=== PATIENT | male | born 1970 | race American Indian/Alaskan Native ===

== ENCOUNTER 2021-06-24 16:09 | Emergency (ER) | payer BC ==
--- NOTE | 2021-06-25 03:06 | Emergency Department Report ---
ED Medical Clearance HPI - General Chief complaint: Medical Clearance Stated complaint: MEDICAL EVAL/REHAB Time Seen by Provider: 06/25/21 01:40 Source: patient Mode of arrival: Wheelchair - History of Present Illness Initial comments: 50-year-old male with past medical history alcohol dependence/EtOH abuse presents emergency department seeking rehabilitation/detox from alcohol needs clearance before being admitted into [facility]. States that he went to [facility] for admission they referred him to the emergency department to obtain his clearance also has a history of sciatica which is causing pain to his right lower back and down his leg his right leg but no numbness or tingling no loss of strength. Reports no fever, chills, sweats does have some nausea but no vomiting. Reason for Medical Clearance: intoxication Alledged Intoxication: Yes Traumatic Symptoms: denies traumatic injury Associated Symptoms: denies: shortness of breath, palpitations, diaphoresis, fever/chills, headaches, anorexia Allergies/Adverse reactions: Allergies Allergy/AdvReac Type Severity Reaction Status Date / Time No Known Allergies Allergy Unverified 06/24/21 17:33 ED Review of Systems ROS: Stated complaint: MEDICAL EVAL/REHAB Other details as noted in HPI Comment: All other systems reviewed and negative ED Past Medical Hx - Past Medical History Previous Medical History?: Yes Hx Asthma: Yes Additional medical history: alcoholism - Surgical History Past Surgical History?: No ED Physical Exam - General Limitations: No Limitations General appearance: alert, in no apparent distress - Head Head exam: Present: atraumatic, normocephalic - Eye Eye exam: Present: normal appearance - ENT ENT exam: Present: mucous membranes moist - Neck Neck exam: Present: normal inspection - Respiratory Respiratory exam: Present: normal lung sounds bilaterally. Absent: respiratory distress - Cardiovascular Cardiovascular Exam: Present: regular rate, normal rhythm. Absent: systolic murmur, diastolic murmur, rubs, gallop - GI/Abdominal GI/Abdominal exam: Present: soft, normal bowel sounds - Rectal Rectal exam: Present: deferred - Extremities Exam Extremities exam: Present: normal inspection - Back Exam Back exam: Present: normal inspection - Neurological Exam Neurological exam: Present: alert, oriented X3 - Psychiatric Psychiatric exam: Present: normal affect, normal mood - Skin Skin exam: Present: warm, dry, intact, normal color. Absent: rash ED Course Vital Signs 06/24/21 06/25/21 06/25/21 17:35 08:08 08:45 Temperature 97.4 F L Pulse Rate 104 H 125 H 113 H Respiratory 18 18 Rate Blood Pressure Blood Pressure 144/94 148/109 [Right] O2 Sat by Pulse 98 98 100 Oximetry 06/25/21 06/25/21 06/25/21 09:15 09:45 10:15 Temperature Pulse Rate 110 H 132 H 122 H Respiratory 21 18 22 Rate Blood Pressure 157/110 161/101 Blood Pressure [Right] O2 Sat by Pulse 98 98 98 Oximetry 06/25/21 06/25/21 06/25/21 10:31 10:45 11:01 Temperature Pulse Rate 116 H 114 H Respiratory 23 25 H 23 Rate Blood Pressure 161/98 161/98 146/92 Blood Pressure [Right] O2 Sat by Pulse 97 98 97 Oximetry 06/25/21 06/25/21 06/25/21 11:15 11:31 12:01 Temperature Pulse Rate 121 H 113 H Respiratory 19 27 H 25 H Rate Blood Pressure 146/92 162/99 155/106 Blood Pressure [Right] O2 Sat by Pulse 97 98 95 Oximetry 06/25/21 06/25/21 06/25/21 12:31 12:45 13:01 Temperature Pulse Rate Respiratory 20 28 H 20 Rate Blood Pressure 143/87 143/87 138/79 Blood Pressure [Right] O2 Sat by Pulse 97 97 98 Oximetry 06/25/21 06/25/21 06/25/21 13:15 13:31 13:45 Temperature Pulse Rate Respiratory 22 21 20 Rate Blood Pressure 138/79 140/89 140/89 Blood Pressure [Right] O2 Sat by Pulse 97 96 96 Oximetry 06/25/21 06/25/21 06/25/21 14:01 14:15 14:31 Temperature Pulse Rate 108 H Respiratory 21 20 19 Rate Blood Pressure 130/79 130/79 120/75 Blood Pressure [Right] O2 Sat by Pulse 97 96 94 Oximetry 06/25/21 06/25/21 06/25/21 14:45 15:01 15:15 Temperature Pulse Rate 105 H 111 H 112 H Respiratory 22 17 18 Rate Blood Pressure 120/75 120/67 120/67 Blood Pressure [Right] O2 Sat by Pulse 97 97 98 Oximetry 06/25/21 06/25/21 15:31 15:45 Temperature Pulse Rate 120 H 101 H Respiratory 20 22 Rate Blood Pressure 120/75 120/75 Blood Pressure [Right] O2 Sat by Pulse 97 97 Oximetry ED Medical Decision Making - Lab Data Result diagrams: 06/25/21 02:44 06/25/21 02:44 - Medical Decision Making 50-year-old male presents emergency department seeking alcohol detox therapy at [facility] ED Disposition Clinical Impression: Desire for detoxification, H/O ETOH abuse Disposition: DC-01 TO HOME OR SELFCARE Is pt being admited?: No Does the pt Need Aspirin: No Condition: Stable Instructions: Alcohol Use Disorder, Medical Screening Exam Additional Instructions: Medical clearance for EtOH detox Professional and Agency Contacts To help [facility](08/06) [place] Crisis Line: Suicide Prevention Line: Crisis Text Line: Text START to [phone] Emergency: 911 Outpatient COMMUNITY Behavioral Health Resources: [facility]: [facility] [address] [place], [place] [address] [facility] [address] [place] [address] Phone: [phone] [facility] [place] [facility] - [address] [place] [address] Thursday thru Thursday - 8am - 5pm [facility] Address: [address] [place] [address] [facility]: [facility] Address: [address] [place] [address] Thursday thru Thursday- 7am-2pm [facility] Address: [address] [place] [address] Thursday thru Thursday: 8:30AM-5PM In case of an emergency, please contact the following numbers: [place] Crisis and Access Line: Number: Crisis Text Line: (Text START) Number: 969118 Suicide Prevention Line: Number: Emergency Number: 911 SUBSTANCE ABUSE PROGRAMS: [facility]: Location: [place], [place] [facility] Address: [address] [place] [address] [facility]: Address: [address] [place] [address] [facility]: Address: [address] [place] [address] [facility]: Address: [address] [place] [address] [facility] Address: [address] [place] [address]. Please contact above numbers to attempt placement into free based program. Medicaid Programs: [facility]: Address: [address] [place] [address] [facility]: Address: [address] [place] [id number] Referrals: PRIMARY CAREMD [Primary Care Provider] - 3-5 Days
[2021-06-25 03:30] LABS: Basophils # (Auto) 0.2 K/mm3 (0.0-0.1); Basophils % (Auto) 1.5 % (0.0-1.8); Hematocrit 48.9 % (35.5-45.6); Hemoglobin 16.7 gm/dl (11.8-15.2); Lymphocytes # (Auto) 0.6 K/mm3 (1.2-5.4); Lymphocytes % (Auto) 6.3 % (13.4-35.0); Mean Corpuscular HGB Conc 34 % (32-34); Mean Corpuscular Volume 99 fl (84-94); Monocytes # (Auto) 0.7 K/mm3 (0.0-0.8); Monocytes % (Auto) 6.8 % (0.0-7.3); Red Blood Count 4.94 M/mm3 (3.65-5.03); Red Cell Distribution Width 15.8 % (13.2-15.2)
[2021-06-25 03:33] LABS: Platelet Count 348 K/mm3 (140-440)
[2021-06-25 03:40] LABS: BUN/Creatinine Ratio 16; Blood Urea Nitrogen 13 mg/dL (9-20); Calcium 9.8 mg/dL (8.4-10.2); Hemolysis Index 42
[2021-06-25 07:02] LABS: Amphetamine Screen,Urine PRESUMPTIVE NEGATIVE; Benzodiazepines Screen,Urine PRESUMPTIVE NEGATIVE; Cannabinoid Screen,Urine PRESUMPTIVE NEGATIVE; Cocaine Screen,Urine PRESUMPTIVE NEGATIVE; Methadone Screen,Urine PRESUMPTIVE NEGATIVE; Opiate Screen,Urine PRESUMPTIVE NEGATIVE
[2021-06-25 07:32] LABS: Bilirubin,Urine NEG (Negative); Blood,Urine MOD (Negative); Color,Urine Yellow (Yellow); Hyaline Casts,Urine 48 /LPF; Mucus,Urine 1+ /HPF; Urobilinogen,Urine < 2.0 mg/dL (<2.0)
[2021-06-25 07:37] LABS: Protein,Urine >500 mg/dL (Negative)
[2021-06-25] MEDS ORDERED: SODIUM CHLORIDE 0.9% 1000 ML 1,000 ML IV ONE ×3 (08:13→14:09)
[2021-06-25] MEDS ORDERED: LORazepam 2 MG/ML VIAL IV ONE (08:14)
[2021-06-25] MEDS ORDERED: ONDANSETRON 4 MG/2 ML INJ IV ONE (09:49)
[2021-06-25] MEDS ORDERED: PANTOPRAZOLE 40 MG INJ IV ONE (09:50)
--- NOTE | 2021-06-25 10:35 | Consultation ---
History of Present Illness - Reason for Consult Consult date: 06/25/21 Reason for consult: mental health eval - History of Present Psychiatric Illness ED Note: 50-year-old male with past medical history alcohol dependence/EtOH abuse presents emergency department seeking rehabilitation/detox from alcohol needs clearance before being admitted into [facility]. States that he went to [facility] for admission they referred him to the emergency [facility] to obtain his clearance also has a history of sciatica which is causing pain to his right lower back and down his leg his right leg but no numbness or tingling no loss of strength. Reports no fever, chills, sweats does have some nausea but no vomiting. Hans Jernigan is a 50 year old male with a history of alcohol use disorder who presents to the ED with seeking alcohol detox. In my interview with the patient, he reports using alcohol since age 18. The patient reports consuming about a fifth of Vodka daily; he reports longest sobriety period as one month. The patient reports having several inpatient detoxification but has never been to a rehab. The patient presents with moderate tremors, nausea/vomiting and denies any alcohol cravings. The patient denies any current suicidal homicidal ideation and denies hallucinations. Diagnoses: Alcohol use disorder Suicide attempts or Self-harm behavior:Denies Prior psychiatric hospitalizations: Multiple Substance Abuse history:Alcohol Previous psychiatric medications tried:Denies Outpatient treatment: Denies PAST MEDICAL HISTORY: None reported Family Psychiatric History: None reported or documented SOCIAL HISTORY Marital Status: Living Arrangements:Live alone Employment Status: unknown Access to guns/weapons: Denies Education: Bachelors History of Abuse: None reported Legal History: None reported REVIEW OF SYSTEMS Constitutional: Negative for weight loss ENT: Negative for stridor Respiratory: Negative for cough or hemoptysis All other systems reviewed and are negative MENTAL STATUS EXAMINATION General Appearance and Behavior: Age appropriate, good hygiene, wearing appropriate clothes, cooperative, cooperative Cooperation: Participating/engaged Psychomotor Behavior: normal Mood: "ok" Affect and affective range: congruent with stated mood Thought Process: goal directed Thought Content: Not Suicidal Speech: Normal volume, Regular rate and rhythm Suicidal Ideation: Denies Homicidal Ideation: Denies Hallucinations: Denies Delusions: None elicited Impulse Control: impaired Insight and Judgment: limited insight and judgment, Memory: normal Attention: Normal Orientation: Alert, oriented Assessment and Plan (1) Alcohol use Disorder (2) Current Visit: Yes Status: Acute Treatment Plan Sitter: Per primary Medical: Per primary Disposition: Do not recommend acute psychiatric inpatient treatment. The patient understands that if suicidal/homicidal ideas or any endangering thoughts/ behaviors arise, they should seek immediate assistance including but not limited to crisis hotline and emergency room. 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 Will sign off. Thanks Case staffed with Dr. Parekh Medications and Allergies Allergies Allergy/AdvReac Type Severity Reaction Status Date / Time No Known Allergies Allergy Unverified 06/24/21 17:33 Mental Status Exam - Vital signs Last Vital Signs Temp 97.4 F L 06/24/21 17:35 Pulse 125 H 06/25/21 08:08 Resp 18 06/24/21 17:35 BP 148/109 06/25/21 08:08 Pulse Ox 98 06/25/21 08:08 Results Result Diagrams: 06/25/21 02:44 06/25/21 02:44 Abnormal lab results 06/25/21 06/25/21 06/25/21 Range/Units 02:44 02:44 02:44 Hgb 16.7 H (11.8-15.2) gm/dl Hct 48.9 H (35.5-45.6) % MCV 99 H (84-94) fl MCH 34 H (28-32) pg RDW 15.8 H (13.2-15.2) % Lymph % (Auto) 6.3 L (13.4-35.0) % Lymph # (Auto) 0.6 L (1.2-5.4) K/mm3 Baso # (Auto) 0.2 H (0.0-0.1) K/mm3 Seg Neutrophils % 85.4 H (40.0-70.0) % Seg Neutrophils # 8.7 H (1.8-7.7) K/mm3 Sodium 133 L (137-145) mmol/L Chloride 83.5 L (98-107) mmol/L Carbon Dioxide 10 L (22-30) mmol/L Glucose 118 H (75-100) mg/dL Salicylates < 0.3 L (2.8-20.0) mg/dL Acetaminophen (10.0-30.0) ug/mL 06/25/21 Range/Units 02:44 Hgb (11.8-15.2) gm/dl Hct (35.5-45.6) % MCV (84-94) fl MCH (28-32) pg RDW (13.2-15.2) % Lymph % (Auto) (13.4-35.0) % Lymph # (Auto) (1.2-5.4) K/mm3 Baso # (Auto) (0.0-0.1) K/mm3 Seg Neutrophils % (40.0-70.0) % Seg Neutrophils # (1.8-7.7) K/mm3 Sodium (137-145) mmol/L Chloride (98-107) mmol/L Carbon Dioxide (22-30) mmol/L Glucose (75-100) mg/dL Salicylates (2.8-20.0) mg/dL Acetaminophen 5.0 L (10.0-30.0) ug/mL All other labs normal.
[2021-06-25] MEDS ORDERED: LORazepam 1 MG TAB PO ONE (13:19)
[2021-06-25] MEDS ORDERED: chlordiazePOXIDE 25 MG CAP PO PRN ×2 (13:59)
[2021-06-25] MEDS ORDERED: LORazepam 2 MG/ML VIAL IV PRN ×2 (13:59)
[2021-06-25 15:44] VITALS: BP 120/75
== END 2021-06-25 16:58 | disposition home or self-care (01) ==
LOC: ED 16:09
DX: F19.10 Other psychoactive substance abuse, uncomplicated (principal); F15.13 Other stimulant abuse with withdrawal; J45.909 Unspecified asthma, uncomplicated; F10.20 Alcohol dependence, uncomplicated
CPT/HCPCS: 36415; 80048; 80307; 81001; 85025; 96361; 96374; 96375; 96376; 99283; C9113; J2060; J2405; J7030; 80320; G0480